=== PATIENT | female | born 1955 | race Caucasian/White ===

== ENCOUNTER 2018-02-23 12:12 | Emergency (ER) | payer OTHER ==
[~2018-02-23] VITALS: Ht 157.5 cm; Wt 69.9 kg
[2018-02-23] MEDS ORDERED: ASPIR-LOW81 MG (12:54)
[2018-02-23] MEDS ORDERED: SYNTHROID88 MCG (12:54)
== END 2018-02-23 21:21 | disposition home or self-care (01) ==
LOC: ER 12:12
DX: R10.32 Left lower quadrant pain (principal); G89.18 Other acute postprocedural pain

== ENCOUNTER 2025-09-19 00:23 | Emergency (ER) | payer OTHER ==
[~2025-09-19] VITALS: Ht 157.5 cm; Wt 65.3 kg
[~2025-09-19 00:23] MED LIST: ASPIR-LOW81 MG; SYNTHROID88 MCG
[2025-09-19] MEDS ORDERED: VYTORIN 10-401 EACH (01:02)
[2025-09-19] MEDS ORDERED: PEPCID20 MG PO (01:03)
[2025-09-19] MEDS ORDERED: MORPHINE SULFATE 4 MG/ML CARTRIDGE IV STA (05:01)
[2025-09-19] MEDS ORDERED: PANTOPRAZOLE SODIUM 40 MG/VIAL VIAL IV STA (05:01)
[2025-09-19] MEDS ORDERED: levoFLOXacin IN DEXTROSE 5 % 5 MG/ML PIGGYBAG IV STA (05:01)
[2025-09-19] MEDS ORDERED: 0.9 % SODIUM CHLORIDE 500 ML IV SCH (05:15)
[2025-09-19 06:53] LABS: BASO % 0.6 % (0.1-1.2); EOS # 0.11 (0.04-0.54); EOS % 1.4 % (0.7-7.0); LYMPH # 2.04 (1.18-3.74); LYMPH % 26.2 % (19.3-53.1); MEAN PLATELET VOLUME 11.60 fl (9.4-12.4); MONO # 0.46 (0.24-0.82); MONO % 5.9 % (4.7-12.5); NEUT # 5.11 (1.56-6.13); NEUT % 65.8 % (34.0-71.1); RED CELL DISTRIBUTION WIDTH 13.8 % (11.6-14.4)
[2025-09-19 07:16] LABS: INR 1.05
[2025-09-19 07:19] LABS: BUN CREA RATIO 15.0 (7.0-25.0); CREATININE SERUM 0.67 mg/dL (0.55-1.02); GFR 87.27; GLUCOSE FASTING 110.0 mg/dL (65-100); OSMOLALITY SERUM 279.0 MOSM/KG (275-295)
[2025-09-19 08:53] LABS: URINE APPEARANCE Clear; URINE BILIRRUBIN Negative (NEGATIVE); URINE BLOOD Negative; URINE COLOR Yellow; URINE GLUCOSE Negative (NEGATIVE); URINE KETONE 15 (NEGATIVE); URINE LEUKOCYTE Negative; URINE NITRATE Negative; URINE PROTEIN Negative (NEGATIVE); URINE UROBILINOGEN 0.2 E.U./dl
[2025-09-19 08:59] LABS: URINE BACTERIA 14.8 uL (0.0-1933); URINE EPITHELIAL CELLS 8.2 uL (0.0-38.8); URINE RBC 9.7 uL (0.0-20.8); URINE WBC 6.2 uL (0.0-23.2)
[2025-09-19 09:36] LABS: URINE CAST 0.42 uL (0.0-1.40)
== END 2025-09-19 10:53 | disposition home or self-care (01) ==
LOC: ER 00:24
PROVIDERS: General Practice
DX: R10.32 Left lower quadrant pain (principal); Z88.2 Allergy status to sulfonamides; Z88.0 Allergy status to penicillin; E11.9 Type 2 diabetes mellitus without complications; E78.00 Pure hypercholesterolemia, unspecified; E03.8 Other specified hypothyroidism; D25.9 Leiomyoma of uterus, unspecified
CPT/HCPCS: 36415; 74176; 96365; 96366; 99284; J1956; J2270; J7042